=== PATIENT | female | born 1995 | race Caucasian/White ===

== ENCOUNTER 2024-02-08 05:37 | Inpatient (IN) ==
[2024-02-08] MEDS ORDERED: LIDOCAINE 1% LOCAL 20 ML VIAL INFIL PRN (06:17)
[2024-02-08] MEDS: LACTATED RINGER'S 1,000 ML IV PRN (06:20)
[2024-02-08 06:43] LABS: Hematocrit (blood only) 36.2 % (37.0-47.0); Mean Corpuscular Hemoglobin 34.6 pg (25.0-34.0); Mean Corpuscular Hgb Conc 35.9 g/dL (32.0-36.0); Mean Corpuscular Volume 96.3 fL (80.0-100.0); Mean Platelet Volume 9.8 fL (9.4-12.4); Platelet Count 161 K/uL (130-400); RDW Coefficient of Variation 12.9 % (11.5-14.5); RDW Standard Deviation 44.8 fL (36.4-46.3); Red Blood Count 3.76 M/uL (4.20-5.40)
[2024-02-08] MEDS: fentANYL 2 MCG/ML BUPIVacaine 0.125%-NSS 100ML BAG ONE (07:20)
[2024-02-08] MEDS ORDERED: diphenhydrAMINE 50 MG/ML VIAL IV PRN (07:26)
[2024-02-08] MEDS ORDERED: fentaNYL citrate PF 100 MCG/2 ML VIAL EPI PRN (07:26)
[2024-02-08] MEDS ORDERED: ROPIVACAINE 0.5% PF 5 MG/ML 20 ML VIAL EPI PRN (07:26)
[2024-02-08] MEDS ORDERED: BUPIVACAINE 0.25% PF 30 ML VIAL EPI PRN (07:26)
[2024-02-08] MEDS ORDERED: fentANYL 2 MCG/ML BUPIVacaine 0.125%-NSS 100ML BAG EPI PRN (07:26)
[2024-02-08] MEDS ORDERED: NALOXONE HCL 0.4 MG/1 ML VIAL/CARP IV PRN (07:26)
[2024-02-08] MEDS ORDERED: NALBUPHINE HCL 5 MG in SYRINGE 0 ML IV PRN (07:26)
[2024-02-08] MEDS ORDERED: NALOXONE HCL 1 MG in SODIUM CHLORIDE 0.9% 1,000 ML IV PRN (07:26)
[2024-02-08] MEDS ORDERED: SODIUM CHLORIDE 0.9% PF INJ 10 ML VIAL EPI PRN (07:26)
[2024-02-08] MEDS ORDERED: LIDOCAINE 2% MPF LOCAL 5 ML VIAL EPI PRN (07:26)
--- NOTE | 2024-02-08 07:26 | Anesthesiology Consultation ---
Date of Service February 08, 2024 Assessment & Plan Chart Review Chart Review: Acceptable Risk for Labor Epidural Consults Requested none History Height/Weight Height: 5 ft 4 in Weight: 87.725 kg Allergies Allergy/AdvReac Type Severity Reaction Status Date / Time No Known Allergies Allergy Verified 02/03/24 13:44 Medications Home Medications Medication Instructions Recorded Confirmed Last Taken no.167-folic acid-dha PO 06/24/23 02/03/24 Unknown [One-A-Day ] Active Medications Generic Name Dose Route Start Last Admin Trade Name Freq PRN Reason Stop Dose Admin Lactated Ringer's 1,000 mls @ 125 mls/hr 02/08/24 06:17 02/08/24 06:20 Lr IV 02/10/24 06:16 999 mls/hr .Q8H PRN Administration L&D Protocol Protocol Past Family History Family History Sister Deaf Past Surgical History Surgical History H/O skin graft Social History Smoking Status: Never smoker Do You Dip or Chew Tobacco: No Hx Alcohol Use: No Hx Substance Use: No substance use type: does not use Physical Exam Vital Signs Last Vital Signs Temp 36.8 C 02/08/24 06:30 Pulse 96 H 02/08/24 07:24 Resp 22 02/08/24 06:20 BP 97/56 L 02/08/24 07:23 Pulse Ox 100 02/08/24 07:24 Testing Laboratory Results 02/08/24 06:25 02/08/24 06:40 POC Glucose 90
[2024-02-08] MEDS: LIDOCAINE 2%/EPINEPHRINE 1:200,000 20 ML PF ONE (07:30)
[2024-02-08] MEDS: ePHEDrine sulfate 50 MG/ML AMP IV PRN (07:41)
--- NOTE | 2024-02-08 08:11 | History & Physical Report ---
Date of Service February 08, 2024 Assessment & Plan (1) Normal labor: (2) Gestational diabetes: Plan pt has been admitted. iv. labs. gdm so will check bsg q2hr in labor. anticip soon. fhts categ 1 Admission and Anticipated Discharge Date Admission Date: February 08, 2024 History of Present Illness Chief Complaint: regular ctx Primary Care Provider: ESTEPHANIA PCP 28yo at postterm with regular ctx. She notes regular ctx and on arrival 8cm. Desired epidural and now comfortable. No rom. Was having bloody show. PNC c/b 1. GDM PNL rh pos, ri, gbs neg OBH: x2 GYNH: nl paps, no stds Allergies Allergy/AdvReac Type Severity Reaction Status Date / Time No Known Allergies Allergy Verified 02/03/24 13:44 Home Medications Medication Instructions Recorded Confirmed Type no.167-folic acid-dha PO 06/24/23 02/03/24 History [One-A-Day ] Patient History Surgical History H/O skin graft Family History Sister Deaf Social History Smoking Status: Never smoker Second Hand Exposure: No; Do You Dip or Chew Tobacco: No; Hx Alcohol Use: No Hx Substance Use: No Preferred Language: Burkinan Coiler Operator Required: No Beliefs That Will Affect Care: None marital status: marital status details: Jesus (32) [phone] Current Living Situation: Spouse and Family Current Living Situation Comment: lives with spouse, 2 children, 2 adopted children, 1 dog. current occupational status: unemployed Feels Safe at Home: Yes Safety Concerns: Feels Safe At This Time Assistive Devices: None Review of Systems as per Subjective / HPI Physical Exam Constitutional: WD/WN, vitals as above Gastrointestinal (Abdomen): soft gravid nt Musculoskeletal: tr edema nontender calves Neurologic: grossly normal Psychiatric: A+Ox3, euthymic affect Genitourinary: Manual OB Exam: + cervical dilation 10 cm, + cervical effacement 100%, + station + 1 and + amniotic fluid (arom) clear OB Exam Monitor Tracing: + external FHT monitor used, + external uterine monitor used (q2-3), + category I and + normal FHT variability Results & Data Vital Signs (Past 12 Hours) Vital Signs Temp Pulse Resp BP Pulse Ox 02/08/24 08:05 98 H 97/59 L 02/08/24 08:04 109 H 100 02/08/24 08:03 103 H 102/59 L 02/08/24 08:00 102 H 108/59 L 02/08/24 07:59 104 H 100 02/08/24 07:56 93 H 86/50 L 02/08/24 07:54 101 H 100 02/08/24 07:53 102 H 87/51 L 02/08/24 07:50 92 H 83/48 L 02/08/24 07:49 92 H 100 02/08/24 07:47 93 H 83/48 L 02/08/24 07:44 99 02/08/24 07:44 92 H 02/08/24 07:44 90 91/52 L 02/08/24 07:41 93 H 83/49 L 02/08/24 07:39 95 H 100 02/08/24 07:38 93 H 84/49 L 02/08/24 07:35 95 H 86/50 L 02/08/24 07:34 94 H 100 02/08/24 07:32 97 H 87/50 L 02/08/24 07:29 94 H 90/53 L 100 02/08/24 07:26 96 H 98/52 L 02/08/24 07:24 96 H 100 02/08/24 07:23 92 H 97/56 L 02/08/24 07:20 89 99/54 L 02/08/24 07:19 94 H 100 02/08/24 07:17 88 107/61 02/08/24 07:14 98 H 119/72 100 02/08/24 07:09 93 H 100 02/08/24 07:04 98 H 100 02/08/24 06:59 89 100 02/08/24 06:54 97 H 100 02/08/24 06:30 98.2 F 02/08/24 06:20 22 Code Status & VTE Plan VTE Prophylaxis Plan VTE Prophylaxis will be ordered: No Reason for no VTE drug order: Treatment not indicated Coding Level of Care Code None Diagnoses Normal labor O80; Z37.9 Gestational diabetes O24.419
[2024-02-08] MEDS: ePHEDrine sulfate 50 MG/ML AMP ONE (08:30)
[2024-02-08] MEDS: fentaNYL citrate PF 100 MCG/2 ML VIAL ONE (08:30)
[2024-02-08] MEDS: SODIUM CHLORIDE 0.9% PF INJ 10 ML VIAL ONE (08:31)
[2024-02-08] MEDS: BUPIVACAINE 0.25% PF 30 ML VIAL ONE (08:31)
[2024-02-08] MEDS: BUPIVACAINE 0.25% PF 30 ML VIAL EPI STA (08:31)
[2024-02-08] MEDS: LIDOCAINE 2%/EPINEPHRINE 1:200,000 20 ML PF EPI STA (08:31)
[2024-02-08] MEDS: fentaNYL citrate PF 100 MCG/2 ML VIAL EPI STA (08:31)
[2024-02-08] MEDS: SODIUM CHLORIDE 0.9% PF INJ 10 ML VIAL EPI STA (08:32)
[2024-02-08] MEDS: OXYTOCIN 30 UNITS/NSS 30 UNITS/500 ML BAG IV PRN (08:59)
[2024-02-08] MEDS: miSOPROStoL 200 MCG TAB ONE (09:04)
--- NOTE | 2024-02-08 09:13 | Delivery Summary ---
Vaginal Delivery Summary Date of Service February 08, 2024 Vaginal Delivery Summary The patient dilated to complete and pushed to deliver a viable male Apgars 8 and 9 via over intact perineum. Mouth and nose bulb suctioned at perineum. Shoulders and body delivered with ease. Infant was vigorous and crying at . Cord clamped at 30 seconds of life and infant to maternal abdomen where the cord was then doubly clamped and cut. Placenta delivered spontaneously and intact, three-vessel cord. Hemostasis achieved with dilute pitocin and uterine massage and drainage of the bladder for approximately 100 cc under sterile conditions. Rectal cytotec 800mcg placed after clots evacuated from SAMEER. Hemostasis excellent. Laceration periurethral reapproximated with 4-0 vicryl. Cervix and sulci intact. EBL 300 cc. Mother and baby stable in recovery. [facility] Vaginal Delivery Charge Delivery Type Details:
[2024-02-08] MEDS ORDERED: HYDROCORTISONE ACETATE 25 MG SUPP PR PRN (09:26)
[2024-02-08] MEDS ORDERED: OXYTOCIN 30 UNITS/NSS 30 UNITS/500 ML BAG IV PRN (09:26)
[2024-02-08] MEDS ORDERED: ACETAMINOPHEN 325 MG TAB PO PRN (09:26)
[2024-02-08] MEDS ORDERED: miSOPROStoL 200 MCG TAB PR ONE (09:26)
[2024-02-08] MEDS ORDERED: DIPHTHER/TETAN/PERTUS Vaccine (Tdap, Adol/Adult) 0.5mL IM ONE (09:26)
[2024-02-08] MEDS ORDERED: oxyCODONE/ACETAMINOPHEN 5mg/325mg TAB PO PRN (09:26)
[2024-02-08] MEDS ORDERED: BENZOCAINE 20% SPRY 85 APPLN/85 GM CAN EXT PRN (09:26)
--- NOTE | 2024-02-08 10:31 | Anesthesia Procedure Note ---
Date of Service February 08, 2024 Anesthesia Post Epidural Note Vital Signs Vital Signs: Temp Pulse Resp BP Pulse Ox 36.8 C 88 22 106/64 98 02/08/24 06:30 02/08/24 09:54 02/08/24 06:20 02/08/24 09:54 02/08/24 09:09 Notes Mental Status: alert / awake / arousable and participated in evaluation Nausea / Vomiting: adequately controlled Pain: adequately controlled Airway Patency, RR, SpO2: stable & adequate BP & HR: stable & adequate Hydration State: stable & adequate Neuraxial Anesthesia: was administered and sensory block is resolving Anesthetic Complications: no major complications apparent and Pt Satisfied with anesthetic care Epidural: Removed without complications and With tip intact
[2024-02-08] MEDS: OXYTOCIN 20 UNITS/LR 1,002 ML IV SCH (12:15)
[2024-02-08] MEDS: DOCUSATE SODIUM 100 MG CAP PO SCH (20:54)
[2024-02-08] MEDS: IBUPROFEN 600 MG TAB PO PRN (20:54)
[2024-02-09 06:25] LABS: Hematocrit (blood only) 33.4 % (37.0-47.0); Hemoglobin 11.4 g/dl (12.0-16.0)
--- NOTE | 2024-02-09 06:59 | Obstetrical Progress Note ---
Date of Service <Ami Thibodeaux MD - Last Filed: 02/09/24 06:59> February 09, 2024 Assessment & Plan <Ami Thibodeaux MD - Last Filed: 02/09/24 06:59> (1) Encounter for assessment: Plan Patient with the above mentioned history and findings was evaluated at bedside and found awake, alert, oriented in all spheres, afebrile, and in no acute distress. Vital signs showed no fever and blood pressures remained stable. Her blood type is A positive and today's hemoglobin is adequate at 11.4 g/dL. Serologies are negative for GBS and patient is Rubella immune. Overall, patient is doing well clinically and meeting the desired milestone for her course. Therefore, will discharge patient today. Patient was counselled on discharge instructions. She is to make an appointment with her OB for 6 weeks after discharge for follow up evaluation. All questions were answered. <Pushpa Lui MD, FACOG - Last Filed: 02/09/24 07:32> (1) Encounter for assessment: Subjective <Ami Thibodeaux MD - Last Filed: 02/09/24 06:59> Whit is a 28 y/o female who is now PPD # 1 following @ 41 3/7 wga. Reports feeling well overall this morning. Refers mild abdominal cramping & 2/10 pain well managed on analgesics. Voiding spontaneously. Tolerating meals overnight and able to ambulate some. Has been passing gas but no bm yet. Some persistent lochia with some improvement this morning. . Constitutional: no fever, no chills or no sweats Denies shortness of breath or difficulty breathing Cardiovascular: no chest pain or no palpitations Breast: no breast pain Genitourinary (female): no dysuria Neurologic: no headache(s) Denies changes in vision Physical Exam <Ami Thibodeaux MD - Last Filed: 02/09/24 06:59> General: Alert. Oriented to person, time, and place. Afebrile. No acute distress. Eyes: pupils equal and reactive to light bilaterally, extraocular movements intact. Cardiac: Regular rate and rhythm, no murmurs/rubs/gallops. Respiratory: Clear to auscultation bilaterally a/p, no wheezes/rales/rhonchi. No increased work of breathing. Symmetrical chest rise. No respiratory distress. Abdomen: Soft, nontender, nondistended. Bowel sounds present. Uterus: Uterine fundus firm, nontender, and palpable at umbilicus. Lower Extremities: No lower extremity edema or swelling. No deep calf pain. Oliver's negative bilaterally. Psych: Euthymic affect. Mood and affect congruence. Regular speech rate and content. Results & Data <Ami Thibodeaux MD - Last Filed: 02/09/24 06:59> Vital Signs (Past 12 Hours) Vital Signs Temp Pulse Resp BP Pulse Ox O2 Del Method 02/09/24 03:05 36.3 C L 85 18 100/64 98 Room Air 02/09/24 00:40 36.3 C L 71 18 99/63 L 99 Room Air 02/08/24 20:50 36.9 C 95 H 18 114/72 97 Room Air Supervising Physician <Pushpa Lui MD, FACOG - Last Filed: 02/09/24 07:32> Co-Signing Physician Notes Resident Physician Supervision Note: I was present with Dr. Thibodeaux during the history and exam. I discussed the case with the resident and agree with the findings and plan as documented in the note. Any exceptions or clarifications are listed here: stable doing well, eating, voiding, ambulating, breast feeding. abd soft ff 2 above to left of umbilicus, (not voided yet), ext nt calves. PPD #1 s/p , will dc home later today, rh pos, ri. instructions reviewed. f/u 6 wk pp check. Documented By: Pushpa Lui MD, FACOG
[2024-02-09] MEDS: PRENATAL VITAMIN 1 TAB PO SCH (08:26)
[2024-02-10] MEDS ORDERED: bisacodyL 10 MG SUPP PR PRN (09:26)
== END 2024-02-09 13:30 | disposition home or self-care (01) | DRG 807 ==
LOC: OPB 05:37 → 4S1 06:14 → 4E2 12:45